=== PATIENT | male | born 1995 | race African-American/Black ===

== ENCOUNTER 2020-05-28 04:05 | Inpatient (IN) ==
[2020-05-28] MEDS ORDERED: MOM Conc 10 ML UD.LIQ PO PRN (05:37)
[2020-05-28] MEDS ORDERED: traZODone 50 MG TABLET PO PRN (05:37)
[2020-05-28] MEDS ORDERED: *HR* LORazepam 1 MG TABLET PO PRN (05:37)
[2020-05-28] MEDS ORDERED: QUEtiapine Fumarate 25 MG TABLET PO PRN (05:37)
[2020-05-28] MEDS ORDERED: haloperidoL 5 MG TABLET PO PRN (05:37)
[2020-05-28] MEDS ORDERED: *HR* LORazepam 2 MG/ML VIAL IM PRN (05:37)
[2020-05-28] MEDS ORDERED: Acetaminophen 325 MG TABLET PO PRN (05:37)
[2020-05-28] MEDS ORDERED: Mag Hydrox/Al Hydrox/Simeth 30 ML UDC PO PRN (05:37)
[2020-05-28] MEDS ORDERED: Nicotine 2 MG GUM BC SCH (18:00)
[2020-05-28] MEDS: Nicotine 2 MG GUM BC PRN ×2 (19:45→21:56)
[2020-05-29] MEDS: Nicotine 2 MG GUM BC PRN ×3 (12:16→22:35)
[2020-05-30] MEDS: Nicotine 2 MG GUM BC PRN (08:38)
[2020-05-30 08:45] VITALS: BP 124/81
== END 2020-05-30 11:20 | disposition home or self-care (01) | DRG 751 ==
LOC: EMEROOARM 04:05 → 1ANU 05:36
PROVIDERS: ADMIT Psychiatry & Neurology Psychiatry; ATTEND Psychiatry & Neurology Psychiatry